=== PATIENT | female | born 1955 | race Caucasian/White ===

== ENCOUNTER 2023-12-16 06:44 | Inpatient (IN) | payer MEDICARE, OTHER ==
[~2023-12-16] VITALS: Ht 160 cm; Wt 102.1 kg
[2023-12-16] MEDS: GABAPENTIN 300 MG CAPSULE PO ONE (06:15)
[2023-12-16] MEDS: ACETAMINOPHEN 325 MG TABLET PO ONE (06:15)
[2023-12-16] MEDS ORDERED: dexaMETHasone SOD PHOSPHATE 1 ML ONE (07:07)
[2023-12-16] MEDS ORDERED: LIDOCAINE 2%-EPI 1:100,000 30 ML VIAL ONE (07:07)
[2023-12-16] MEDS ORDERED: VANCOMYCIN 1 GM VIAL ONE (07:08)
[2023-12-16] MEDS ORDERED: ANESTHESIA TRAY IN PYXIS 1 EA TRAY MC ONE (07:08)
[2023-12-16] MEDS ORDERED: OXYMETAZOLINE HCL NASAL SPRAY 30 ML BOTTLE NS ONE (07:08)
[2023-12-16] MEDS ORDERED: SEVOFLURANE 250 ML BOTTLE IH ONE (07:13)
[2023-12-16] MEDS: OXYMETAZOLINE HCL NASAL SPRAY 30 ML BOTTLE NS ONE (07:20)
[2023-12-16] MEDS ORDERED: FENTANYL PF 100MCG/2ML AMPUL ONE ×2 (07:26→10:43)
[2023-12-16] MEDS ORDERED: MIDAZOLAM HCL 2 MG/2ML VIAL ONE (07:27)
[2023-12-16] MEDS ORDERED: ROCURONIUM BROMIDE 50 MG/5 ML ONE (07:27)
[2023-12-16] MEDS: GABAPENTIN 100 MG CAPSULE PO ONE (07:30)
[2023-12-16] MEDS: ACETAMINOPHEN ES 500 MG TABLET PO ONE (07:30)
[2023-12-16] MEDS ORDERED: ONDANSETRON HCL/PF 4 MG/2 ML VIAL IV PRN (11:00)
[2023-12-16 11:44] VITALS: BP 146/91; TEMP 98.2; O2SAT 97
[2023-12-16] MEDS: ACETAMINOPHEN 325 MG TABLET PO PRN (11:52)
[2023-12-16] MEDS ORDERED: ONDANSETRON HCL/PF 4 MG/2 ML VIAL IVP PRN (13:30)
[2023-12-16] MEDS ORDERED: ACETAMINOPHEN 325 MG TABLET PO PRN (13:30)
[2023-12-16] MEDS ORDERED: Z GUARD REMEDY 4 OZ OINT TP PRN (13:30)
[2023-12-16] MEDS: HYDROMORPHONE 1 MG/1 ML DISP.SYRIN IV PRN (13:40)
[2023-12-16 15:44] VITALS: BP 130/84; TEMP 98.4; O2SAT 95
[2023-12-16 16:00] VITALS: BP 118/62; TEMP 98.4; O2SAT 100
[2023-12-16] MEDS ORDERED: ROSU10TA29 PO (16:55)
[2023-12-16] MEDS ORDERED: LEVO150T94 PO (16:55)
[2023-12-16] MEDS ORDERED: ALPR0.5T8 PO (16:55)
[2023-12-16] MEDS ORDERED: LOSA50TA39 PO (16:55)
[2023-12-16] MEDS ORDERED: ICOS1CAP PO (16:55)
[2023-12-16] MEDS ORDERED: SITA1TAB2 PO (16:55)
[2023-12-16] MEDS ORDERED: EMPA10TA PO (16:55)
[2023-12-16] MEDS ORDERED: INSULIN REGULAR, HUMAN 100 UNIT/ML 3 ML VIAL SQ PRN (17:00)
[2023-12-16] MEDS ORDERED: DEXTROSE 50%-WATER 50 ML DISP.SYRIN IV PRN (17:00)
[2023-12-16] MEDS: BLOOD SUGAR DIAGNOSTIC 1 EACH STRIP IN SCH (17:10)
[2023-12-16] MEDS: IV NS 0.9% 1,000 ML IV PRN (17:49)
[2023-12-16] MEDS: VANCOMYCIN 1 GM in IV D5W 250ml IV SCH (20:19)
[2023-12-16 20:35] VITALS: BP 145/86; TEMP 98.4; O2SAT 93
[2023-12-17 05:41] VITALS: O2SAT 98
[2023-12-17 06:53] LABS: BASOPHILS % (AUTO) 0.3 % (0.0-2.0); EOSINOPHILS # (AUTO) 0.1 K/uL (0.0-0.7); EOSINOPHILS % (AUTO) 0.5 % (0.0-6.0); HEMATOCRIT 36 % (33-45); HEMOGLOBIN 11.5 g/dL (11.5-14.8); LYMPHOCYTES # (AUTO) 2.7 K/uL (0.8-4.8); LYMPHOCYTES % (AUTO) 24.6 % (20.0-44.0); MEAN CORPUSCULAR HEMOGLOBIN 27 PG (26.0-33.0); MEAN CORPUSCULAR HGB CONC 33 g/dl (31.0-36.0); MEAN CORPUSCULAR VOLUME 83 fL (82-100); MONOCYTES % (AUTO) 9.4 % (2.0-12.0); NEUTROPHILS # (AUTO) 7.1 K/uL (1.8-8.9); NEUTROPHILS % (AUTO) 65.2 % (43.0-81.0); PLATELET COUNT (AUTO) 238 K/uL (150-450); RED BLOOD CELL COUNT(AUTO) 4.27 MIL/uL (4.0-5.2); RED CELL DISTRIBUTION WIDTH 15.2 % (11.5-15.0); WHITE BLOOD COUNT (AUTO) 10.9 K/uL (4.3-11.0)
[2023-12-17 07:07] LABS: CALCIUM, SERUM 7.9 mg/dL (8.5-10.1); CREATININE 0.6 mg/dL (0.6-1.3); MAGNESIUM 2.2 mg/dL (1.8-2.4); PHOSPHORUS 2.9 mg/dL (2.5-4.9); POTASSIUM 3.8 mmol/L (3.5-5.1)
[2023-12-17 07:30] VITALS: BP 120/68; TEMP 98.3; O2SAT 92
[2023-12-17] MEDS: PANTOPRAZOLE 40 MG TABLET.DR PO SCH (08:07)
== END 2023-12-17 11:30 | disposition home or self-care (01) | DRG 516 ==
LOC: DS 06:44 → MED 11:22
PROVIDERS: ADMIT Nurse Practitioner Acute Care; ATTEND Nurse Practitioner Acute Care
PROC: 0NSR04Z Reposition Maxilla with Internal Fixation Device, Open Approach (ICD-10-PCS; principal; 2023-12-16)
PROC: 0NSV04Z Reposition Left Mandible with Internal Fixation Device, Open Approach (ICD-10-PCS; 2023-12-16)
PROC: 0NST04Z Reposition Right Mandible with Internal Fixation Device, Open Approach (ICD-10-PCS; 2023-12-16)
PROC: 0NUR0JZ Supplement Maxilla with Synthetic Substitute, Open Approach (ICD-10-PCS; 2023-12-16)
PROC: 0NBV0ZX Excision of Left Mandible, Open Approach, Diagnostic (ICD-10-PCS; 2023-12-16)
PROC: 0NBR0ZX Excision of Maxilla, Open Approach, Diagnostic (ICD-10-PCS; 2023-12-16)
PROC: 0NBT0ZX Excision of Right Mandible, Open Approach, Diagnostic (ICD-10-PCS; 2023-12-16)
PROC: 0NUV07Z Supplement Left Mandible with Autologous Tissue Substitute, Open Approach (ICD-10-PCS; 2023-12-16)
PROC: 0NUR07Z Supplement Maxilla with Autologous Tissue Substitute, Open Approach (ICD-10-PCS; 2023-12-16)
PROC: 0NUT07Z Supplement Right Mandible with Autologous Tissue Substitute, Open Approach (ICD-10-PCS; 2023-12-16)
DX: S02.40DK Maxillary fracture, left side, subsequent encounter for fracture with nonunion (principal); M87.88 Other osteonecrosis, other site; X58.XXXD Exposure to other specified factors, subsequent encounter; M27.2 Inflammatory conditions of jaws; D16.4 Benign neoplasm of bones of skull and face; E78.5 Hyperlipidemia, unspecified; I10 Essential (primary) hypertension; E11.9 Type 2 diabetes mellitus without complications; E04.9 Nontoxic goiter, unspecified; F03.90 Unspecified dementia, unspecified severity, without behavioral disturbance, psychotic disturbance, mood disturbance, and anxiety; E89.0 Postprocedural hypothyroidism; Y83.9 Surgical procedure, unspecified as the cause of abnormal reaction of the patient, or of later complication, without mention of misadventure at the time of the procedure; Y92.9 Unspecified place or not applicable; M60.9 Myositis, unspecified
CPT/HCPCS: 36415; 80048-TC; 80061-TC; 82962-TC; 83735-TC; 84100-TC; 85025-TC; 88305-TC; 88311-TC; 88312-TC; 94799-TC; A4223; C1713; G0378; J0690; J1100; J1170; J1815; J2250; J2405; J2704; J3010; J3370; J3490; J7030; J7060

== ENCOUNTER 2024-04-21 07:06 | Inpatient (IN) | payer MEDICARE, OTHER ==
[~2024-04-21 07:06] MED LIST: ALPR0.5T8 PO; EMPA10TA PO; ICOS1CAP PO; LEVO150T94 PO; LOSA50TA39 PO; ROSU10TA29 PO; SITA1TAB2 PO
[2024-04-21] MEDS ORDERED: VANCOMYCIN 1 GM VIAL ONE (08:29)
[2024-04-21] MEDS ORDERED: LIDOCAINE 2%-EPI 1:100,000 30 ML VIAL ONE (08:29)
[2024-04-21] MEDS ORDERED: dexaMETHasone SOD PHOSPHATE 1 ML ONE (08:29)
[2024-04-21] MEDS ORDERED: OXYMETAZOLINE HCL NASAL SPRAY 30 ML BOTTLE NS ONE (08:30)
[2024-04-21] MEDS ORDERED: FENTANYL PF 100MCG/2ML AMPUL ONE (08:32)
[2024-04-21] MEDS ORDERED: MIDAZOLAM HCL 2 MG/2ML VIAL ONE (08:32)
[2024-04-21] MEDS ORDERED: FAMOTIDINE/PF INJ 20 MG/2 ML VIAL IV ONE (08:33)
[2024-04-21] MEDS ORDERED: ONDANSETRON HCL/PF 4 MG/2 ML VIAL IV PRN ×2 (09:30→11:00)
[2024-04-21] MEDS ORDERED: HYDROMORPHONE 1 MG/1 ML DISP.SYRIN IV PRN (09:30)
[2024-04-21] MEDS ORDERED: LABETALOL 20 MG/4 ML VIAL IV PRN (09:30)
[2024-04-21] MEDS ORDERED: BLOOD SUGAR DIAGNOSTIC 1 EACH STRIP IN ONE (09:30)
[2024-04-21 10:40] VITALS: BP 140/84; TEMP 98.4; O2SAT 95
[2024-04-21] MEDS ORDERED: IV NS 0.9% 1,000 ML IV PRN (11:00)
[2024-04-21] MEDS: ACETAMINOPHEN 325 MG TABLET PO PRN (11:21)
[2024-04-21] MEDS ORDERED: Z GUARD REMEDY 4 OZ OINT TP PRN (11:30)
[2024-04-21] MEDS ORDERED: MAGNESIUM HYDROXIDE 30 ML UDC PO PRN (11:30)
[2024-04-21] MEDS ORDERED: DEXTROSE 50%-WATER 50 ML DISP.SYRIN IV PRN (11:30)
[2024-04-21] MEDS ORDERED: MAG HYDROX/AL HYDROX/SIMETH 30 ML UDC PO PRN (11:30)
[2024-04-21] MEDS ORDERED: ZOLPIDEM TARTRATE 5 MG TABLET PO PRN (11:30)
[2024-04-21] MEDS ORDERED: HYDROCODONE/APAP 5/325MG TABLET PO PRN (11:30)
[2024-04-21] MEDS ORDERED: *INSULIN REGULAR(HUMULIN R)HUM 100 UNIT/ML VIAL SQ PRN (11:30)
[2024-04-21] MEDS ORDERED: ACETAMINOPHEN 325 MG TABLET PO PRN (11:30)
[2024-04-21] MEDS ORDERED: ONDANSETRON HCL/PF 4 MG/2 ML VIAL IVP PRN (11:30)
[2024-04-21] MEDS ORDERED: METF-440 PO (11:38)
[2024-04-21] MEDS ORDERED: AMOX1TAB16 PO (11:38)
[2024-04-21] MEDS: BLOOD SUGAR DIAGNOSTIC 1 EACH STRIP VI SCH (11:57)
[2024-04-21] MEDS: INSULIN REGULAR, HUMAN 100 UNIT/ML 3 ML VIAL SQ PRN (11:59)
[2024-04-21 12:00] VITALS: BP 123/75; TEMP 98.2; O2SAT 95
[2024-04-21] MEDS ORDERED: FLUMAZENIL 0.5 MG VIAL ONE (12:02)
[2024-04-21 13:00] VITALS: BP 126/77; TEMP 97.9; O2SAT 95
[2024-04-21] MEDS: HYDROMORPHONE 1 MG/1 ML DISP.SYRIN IV PRN (13:12)
[2024-04-21 15:00] VITALS: BP 126/73; TEMP 98; O2SAT 95
[2024-04-21] MEDS ORDERED: ALPRAZOLAM 0.5 MG TABLET PO PRN (16:00)
[2024-04-21] MEDS ORDERED: Medication Not On Formulary EA (Icosapent Ethyl (Vascepa) 2 GM) PO SCH (16:30)
[2024-04-21] MEDS ORDERED: METFORMIN 500 MG TABLET PO SCH (17:00)
[2024-04-21] MEDS ORDERED: AMOX/CLAVULANATE 875 MG TABLET PO SCH (21:00)
[2024-04-21] MEDS ORDERED: ATORVASTATIN 40 MG TABLET PO SCH (22:00)
[2024-04-22] MEDS ORDERED: LEVOTHYROXINE SODIUM 75 MCG TABLET PO SCH (09:00)
[2024-04-22] MEDS ORDERED: LOSARTAN POTASSIUM 50 MG TABLET PO SCH (09:00)
[2024-04-22] MEDS ORDERED: EMPAGLIFLOZIN 10 MG TABLET PO SCH (09:00)
== END 2024-04-21 18:19 | disposition home or self-care (01) | DRG 497 ==
LOC: DS 07:06 → MED 11:16
PROVIDERS: ADMIT Student in an Organized Health Care Education/Training Program; ATTEND Student in an Organized Health Care Education/Training Program
PROC: 0N5V0ZZ Destruction of Left Mandible, Open Approach (ICD-10-PCS; principal; 2024-04-21)
PROC: 0N5T0ZZ Destruction of Right Mandible, Open Approach (ICD-10-PCS; 2024-04-21)
PROC: 0N5R0ZZ Destruction of Maxilla, Open Approach (ICD-10-PCS; 2024-04-21)
PROC: 0NPW04Z Removal of Internal Fixation Device from Facial Bone, Open Approach (ICD-10-PCS; 2024-04-21)
PROC: 0WB30ZX Excision of Oral Cavity and Throat, Open Approach, Diagnostic (ICD-10-PCS; 2024-04-21)
DX: T84.69XA Infection and inflammatory reaction due to internal fixation device of other site, initial encounter (principal); Y83.8 Other surgical procedures as the cause of abnormal reaction of the patient, or of later complication, without mention of misadventure at the time of the procedure; Y92.009 Unspecified place in unspecified non-institutional (private) residence as the place of occurrence of the external cause; E03.9 Hypothyroidism, unspecified; E11.9 Type 2 diabetes mellitus without complications; E78.5 Hyperlipidemia, unspecified; J32.0 Chronic maxillary sinusitis; I10 Essential (primary) hypertension; K13.70 Unspecified lesions of oral mucosa; M89.38 Hypertrophy of bone, other site
CPT/HCPCS: 82962-TC; 88305-TC; 88311-TC; A4338; G0378; J1100; J1171; J1815; J1885; J2250; J2405; J2704; J2765; J3010; J3370; J3490; J7030